=== PATIENT | male | born 1965 | race Caucasian/White ===

== ENCOUNTER 2017-03-11 19:50 | Emergency (ER) | payer OTHER ==
--- NOTE | 2017-03-11 21:17 | ED ORDER SUMMARY ---
..... Patient: NANDO PERAZA OrderSheet [facility] VisitID: [id number] [address] [place] [address] 51y, M Registration Date/Time: 03/11/2017 ORDER SHEET Weight: 96.1 kg (stated) Allergies: None GENERAL ORDERS: CBC w Diff Urgent (20:33 03/11/2017 HBivens A.R.N.P.) (Ack 20:34 PWeiler ER Tech1) (20:46 KPage-Kuchan R.N.) CMP Urgent (20:33 03/11/2017 HBivens A.R.N.P.) (Ack 20:34 PWeiler ER Tech1) (20:46 KPage-Kuchan R.N.) Vitals - Orthostatic (20:33 03/11/2017 HBivens A.R.N.P.) (21:00 KPage-Kuchan R.N.) MEDICATION ORDERS: Meclizine PO 50 mg (NOW) (20:33 03/11/2017 HBivens A.R.N.P.) (Ack 20:46 KPage-Kuchan R.N.) (20:58 KPage-Kuchan R.N.) IV FLUIDS: IV NS : initial bolus 1000 mL (1000 mL/hr), then none - (NOW) (20:32 03/11/2017 HBivens A.R.N.P.) (Ack 20:46 KPage-Kuchan R.N.) (20:59 KPage-Kuchan R.N.) Zofran IV 4 mg (NOW) (20:33 03/11/2017 HBivens A.R.N.P.) (Ack 20:46 KPage-Kuchan R.N.) (20:59 KPage-Kuchan R.N.) IV Saline Lock (20:33 03/11/2017 HBivens A.R.N.P.) (20:59 KPage-Kuchan R.N.) ORDER SHEET NOTES: [Electronically signed by Wen Birzuela R.N. (21:46 03/11/2017)] [Electronically signed by Susu Alonso (22:13 03/11/2017)] [Electronically locked/signed by Wen Brizuela R.N. (21:46 03/11/2017)]
--- NOTE | 2017-03-11 21:17 | ED CLINICAL REPORT ---
Clinical Report - Physicians/Mid Levels [facility] [address] [address] 03/11/2017 19:50 Patient: NANDO PERAZA Time Seen: 20:20; initial patient contact, initial documentation, patient care assumed. Arrived- By private vehicle. Historian- patient. HISTORY OF PRESENT ILLNESS Chief Complaint: DIZZINESS. Severity described as severe at its maximum. When seen in the E.D., severity described as severe. Modifying factors- worsened by turning head, standing up and changing position. Relieved by nothing. Described as a sense of rotation and movement. Not described as feeling weak all over. This started today and is still present. It was abrupt in onset and has been constant. The patient has had nausea and vomiting. No hearing loss, tinnitus or ear pain. Similar symptoms previously: None. Recent medical care: Not recently seen/assessed. REVIEW OF SYSTEMS No headache, double vision, weakness, head injury or chest pain. No numbness, fever or difficulty breathing. No difficulty walking. All systems otherwise negative, except as recorded above. PAST HISTORY See nurses notes. ( PROBLEMS: Elevated Cholesterol. --20:01 Wen Brizuela, R.N. ADDITIONAL SURGERIES: Inguinal Hernia Repair. --20:01 Wen Brizuela, R.N.). SOCIAL HISTORY Never smoker. Occasional alcohol use. No drug use. No recent travel. Is a local resident. FAMILY HISTORY Negative. ADDITIONAL NOTES The nursing notes have been reviewed with agreement regarding the chief complaint, HPI, ROS, PMH and patient medications and allergies. PHYSICAL EXAM Vital Signs: 03/11/2017 19:58 BP: 128/94. HR: 74. RR: 19. O2 saturation: 99%. Temp: 97.7 F. Pain level now: 4/10. Have been reviewed as normal and appear to be correct. Appearance: Alert. No acute distress. Eyes: Pupils equal, round and reactive to light. No nystagmus. Extraocular movements normal. ENT: Normal ENT inspection. TM's normal. Moist mucous membranes. Pharynx normal. Neck: Normal inspection. Neck supple. CVS: Normal heart rate and rhythm. Heart sounds normal. Pulses normal. Respiratory: No respiratory distress. Breath sounds normal. Back: Normal inspection. Skin: Skin warm and dry. Normal skin color. No rash. Normal skin turgor. Extremities: Extremities exhibit normal ROM. No lower extremity edema. Neuro: Alert. Oriented X 3. Mood/affect normal. Speech normal. Cranial nerves normal (as tested). No cerebellar findings. No motor deficit. No sensory deficit. LABS, X-RAYS, AND EKG Laboratory Tests: CBC w Diff: (PRAKASH: 03/11/2017 20:05) ( MsgRcvd 03/11/2017 20:43) Final results Test Result Flag Units (Reference) WHITE BLOOD COUNT 9.7 K/uL (4.5-11.5) RED BLOOD COUNT 5.43 M/uL (4.50-5.90) HEMOGLOBIN 15.7 gm/dL (13.5-17.5) HEMATOCRIT 47.8 % (41.0-53.0) MEAN CELL VOLUME 88 fL (80-100) MEAN CORPUSCULAR HGB 29 pg (26-34) MEAN CORPUSCULAR HGB CONC 33 g/dL (31-37) RED CELL DISTRIBUTION WIDTH 13.5 % (11.6-14.8) PLATELET COUNT 343 K/uL (150-400) NEUTROPHIL % 64.3 % (50-75) LYMPH % 26.2 % (25-40) MONO % 6.6 % (3-14) EOSINOPHIL % 2.5 % (0-4) BASOPHIL % 0.4 % (0-2) CMP: (PRAKASH: 03/11/2017 20:33) ( MsgRcvd 03/11/2017 21:07) Final results Test Result Flag Units (Reference) GLUCOSE 102 mg/dL (70-110) BUN 13 mg/dL (7-18) CREATININE 0.9 mg/dL (0.6-1.3) Estimated GFR >60 mL/min Estimated GFR- >60 mL/min Note: Persistent reduction over 3 months in eGFR<60 mL/min/1.73 m2 defines CKD. Patients with eGFR values>=60 mL/min/1.73 m2 may also have CKD if evidence ofpersistent proteinuria. Additional information may be foundat www.kidney.org. SODIUM 143 mmol/L (136-145) POTASSIUM 4.2 mmol/L (3.5-5.1) CHLORIDE 106 mmol/L (98-107) CARBON DIOXIDE 24 mmol/L (21-32) CALCIUM 8.6 mg/dL (8.5-10.1) TOTAL PROTEIN 7.4 g/dL (6.4-8.2) ALBUMIN 3.8 g/dL (3.3-5.0) BILIRUBIN, TOTAL 0.2 mg/dL (0.0-1.0) ALKALINE PHOSPHATASE 76 U/L (46-116) AST (SGOT) 17 U/L (15-37) ALT (SGPT) 42 U/L (12-78) . PROGRESS AND PROCEDURES Course of Care: orthos vs. Patient counseled in person regarding the patient's stable condition, test results and diagnosis. 21:11. Differential Diagnosis: I considered cochlear disease, labyrinthitis, vestibular neuronitis, Meniere's disease, benign positional vertigo, brainstem TIA, near-syncope, multiple sensory deficits, anxiety, psychosis and metaphorical dizziness such as depression, chronic fatigue, etc as a possible cause of dizziness in this patient. This is a partial list of diagnoses considered. Above considerations are based on history, physical exam, reassessment and laboratory data. Differential diagnosis was discussed with patient and patient's spouse. Disposition: Discharged home in good and improved condition (21:17). Condition: good and stable. CLINICAL IMPRESSION Acute dizziness INSTRUCTIONS Warnings: GENERAL WARNINGS: Return or contact your physician immediately if your condition worsens or changes unexpectedly, if not improving as expected, or if other problems arise. SPECIFICALLY, return if you develop chest pain, neck pain, jaw pain, shoulder pain, arm pain, back pain, fluttering sensation in your chest, lightheadedness, fainting, numbness, weakness or extreme fatigue. Prescription Medications: Meclizine 25 mg: Take 1 tablet orally every 8 hours as needed for dizziness. Dispense thirty (30). No refills. Follow-up: Follow up with your doctor in about three days even if well. Call for an appointment. Summary of care provided to patient and family. Understanding of the discharge instructions verbalized by patient. (Electronically signed by Susu Alonso A.R.N.P. 03/11/2017 22:13)
--- NOTE | 2017-03-11 21:17 | ED ORDER SUMMARY ---
..... Patient: NANDO PERAZA OrderSheet [facility] VisitID: [id number] [address] [place] [address] 51y, M Registration Date/Time: 03/11/2017 ORDER SHEET Weight: 96.1 kg (stated) Allergies: None GENERAL ORDERS: CBC w Diff Urgent (20:33 03/11/2017 HBivens A.R.N.P.) (Ack 20:34 PWeiler ER Tech1) (20:46 KPage-Kuchan R.N.) CMP Urgent (20:33 03/11/2017 HBivens A.R.N.P.) (Ack 20:34 PWeiler ER Tech1) (20:46 KPage-Kuchan R.N.) Vitals - Orthostatic (20:33 03/11/2017 HBivens A.R.N.P.) (21:00 KPage-Kuchan R.N.) MEDICATION ORDERS: Meclizine PO 50 mg (NOW) (20:33 03/11/2017 HBivens A.R.N.P.) (Ack 20:46 KPage-Kuchan R.N.) (20:58 KPage-Kuchan R.N.) IV FLUIDS: IV NS : initial bolus 1000 mL (1000 mL/hr), then none - (NOW) (20:32 03/11/2017 HBivens A.R.N.P.) (Ack 20:46 KPage-Kuchan R.N.) (20:59 KPage-Kuchan R.N.) Zofran IV 4 mg (NOW) (20:33 03/11/2017 HBivens A.R.N.P.) (Ack 20:46 KPage-Kuchan R.N.) (20:59 KPage-Kuchan R.N.) IV Saline Lock (20:33 03/11/2017 HBivens A.R.N.P.) (20:59 KPage-Kuchan R.N.) ORDER SHEET NOTES: [Electronically signed by Wen Brizuela R.N. (21:46 03/11/2017)] [Electronically signed by Susu Alonso (22:13 03/11/2017)] [Electronically locked/signed by Wen Brizuela R.N. (21:46 03/11/2017)]
--- NOTE | 2017-03-11 21:17 | ED NURSING NOTES ---
Clinical Report - Nurses [facility] [address] [place] [address] 03/11/2017 19:50 Patient: NANDO PERAZA TRIAGE Triage time 19:58 Mar 11 2017. Chief Complaint: (pt reports waking today feeling "dizzy and couldn't focus on anything" t/o the day symptoms increased to vomiting on the way here.). Alert. No acute distress. SEPSIS SCREEN: Sepsis Screen. Negative (no infection suspected/documented). --20:04 Wen Brizuela R.N. 19:58 03/11/17. BP: 128/94. HR: 74. RR: 19. O2 saturation: 99%. Temp: 97.7 F. Pain level now: 02/23. --20:04 Wen Brizuela R.N. Weight: 96.1 kg stated. Height/Length: 73 inches Per Patient. BMI: 28. --20:03 Wen Brizuela R.N. Medications Simvastatin Oral. --20:00 Wen Brizuela R.N. Wellbutrin Oral. --20:00 Wen Brizuela R.N. Allergies None. --20:00 Wen Brizuela R.N. History Arrived by private vehicle. Historian: patient. Accompanied by family. Onset. (pt woke this morning feeling "sick"). He has had nausea and vomiting. Last oral intake by patient was today (7 hours ago). 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 SOCIAL HX: Smoker- current status unknown. Occasional alcohol use; consumes beer weekly and liquor. No drug use. No infectious disease exposure. No known contact with a sick individual. ABUSE ASSESSMENT: No report of abuse. SELF HARM ASSESSMENT: A self harm assessment was performed. The patient answered "no" to the question "Have you recently felt down, depressed, or hopeless?", "Have you noticed less interest or pleasure in doing things?", "Do you have thoughts of harming or killing yourself?", "Are you here because you tried to hurt yourself?", "Have you ever tried to hurt yourself before today?", "Have you recently had thoughts about harming or killing others?" and "Do you have any dangerous items in your possession?". FALL RISK ASSESSMENT: Fall risk assessment completed. No fall risk identified. NUTRITIONAL RISK ASSESSMENT: The nutritional risk assessment revealed no deficiencies. FUNCTIONAL ASSESSMENT: Functional assessment: no impairments noted. LEARNING NEEDS ASSESSMENT: The learning needs assessment revealed no barriers. SKIN INTEGRITY ASSESSMENT: Skin integrity risk assessment completed. No skin integrity risk identified. --20:04 Wen Brizuela R.N. PROBLEMS: Elevated Cholesterol. --20:01 Wen Brizuela R.N. ADDITIONAL SURGERIES: Inguinal Hernia Repair. --20:01 Wen Brizuela R.N. Interventions ID band on patient. To treatment room. --20:04 Wen Brizuela R.N. PHYSICAL ASSESSMENT Ambulatory to room. Patient gowned. GENERAL / NEURO / PSYCH: Alert. Oriented X 4. Appears anxious. He appears ill and uncomfortable and appears restless. HEENT: Mucous membranes are pink. RESPIRATORY: Respirations not labored. Breath sounds within normal limits. CVS: Capillary refill less than 2 seconds. GI / : Abdomen soft and nontender. Bowel sounds within normal limits. SKIN: Skin is warm and dry. --20:05 Wen Brizuela R.N. NURSING PROGRESS NOTES Patient gowned. Reassurance given. Two patient identifiers checked. Call light placed in reach. Side rails up x 1. Bed placed in lowest position. Brakes of bed on. Patient ready for evaluation- chart flagged. Patient waiting for evaluation. --20:05 Wen Brizuela R.N. 20:01 03/11/2017 Site #1 started via IV in the left hand with an 20g angiocath; one attempt. Blood drawn: rainbow set. Labeled in the presence of the patient and sent to the lab. Saline lock flushed with 10 mL saline. --20:06 Wen Brizuela R.N. ( pt had emesis on the way to the ED, describes as "it was my lunch, 3 times in a row" pt reports spinning with each position change). --20:07 Wen Brizuela R.N. 20:53 03/11/2017 Meclizine PO 50 mg given. Allergies verified, confirmed 5 rights and sedative warning given. --20:58 Wen Brizuela R.N. 20:54 03/11/2017 Zofran (Ondansetron HCl) IVP 4 mg given. via site #1. Allergies verified and confirmed 5 rights. IV patency established. IV site checked: no pain, redness, or swelling. IV flushed thoroughly pre- and post-medication administration. IVP given by RN. --20:59 Wen Brizuela R.N. 20:59 03/11/2017 Started bag #1 1000 mL IV Fluids IV NS (Saline); at 1000 mL/hr via site #1 via IV pump. Allergies verified and confirmed 5 rights. IV patency established. IV site checked: no pain, redness, or swelling. IV flushed thoroughly pre- and post-medication administration. --20:59 Wen Brizuela R.N. 21:01 03/11/17. BP: 134/101 taken while standing. HR: 82. 21:01 03/11/17. BP: 131/93 taken while sitting. HR: 75. 21:00 03/11/17. BP: 124/84 taken on the left arm, while lying. HR: 78. 19:58 03/11/17. BP: 128/94. HR: 74. RR: 19. O2 saturation: 99%. Temp: 97.7 F. Pain level now: 02/23. --21:02 Wen Brizuela R.N. ( orthostatic v/s completed, pt reported "dizzy" with position changes, nausea increased from laying to sitting position. s/o at bedside, call light in hand.). --21:06 Wen Brizuela R.N. ( pt reports dec in nausea after zofran, ivf infusing as ordered, will dispo upon completion of ivf). --21:17 Wen Brizuela R.N. 21:25 03/11/2017 Zofran IVP Response: no adverse reaction symptoms have improved the patient feels better. --21:40 Wen Brizuela R.N. 21:29 03/11/2017 IV Saline Lock Drip IV Discontinued: STOPPED upon discharge. Total amount infused: 1000 mL. IV patency established. IV site checked: no pain, redness, or swelling. IV flushed thoroughly. --21:39 Wen Brizuela R.N. 21:31 03/11/2017 IV Fluids IV NS Discontinued: infused upon discharge. Total amount infused: 1000 mL. IV patency established. IV site checked: no pain, redness, or swelling. IV flushed thoroughly. --21:41 Wen Brizuela R.N. 21:36 03/11/2017 Meclizine PO Response: no adverse reaction symptoms have improved. --21:41 Wen Brizuela R.N. 21:38 03/11/2017 Site #1 removed upon discharge. Bandaid applied. --21:42 Wen Brizuela R.N. DISPOSITION / DISCHARGE Departure time: 2136. Condition at departure: improved. No learning barriers present. Discharge instructions provided and reviewed with the patient and spouse. Reviewed medication(s) side effects and course information. Prescription(s) given to the patient. Patient verbalized understanding. Written instructions provided in [place]. The patient was discharged by the nurse practitioner. He was discharged home and accompanied by spouse. He left the Emergency Department ambulatory and via private vehicle. Spouse driving. --21:39 Wen Brizuela R.N. 21:36 03/11/17. BP: 136/88. HR: 76. RR: 17. O2 saturation: 99%. Temp: 98.3 F. Pain level now: 01/23. --21:39 Wen Brizuela R.N. Locked/Released at 03/11/2017 21:46 by Wen Brizuela R.N.
--- NOTE | 2017-03-11 22:13 | ED MED RECONCILIATION SUMMARY ---
Patient: NANDO PERAZA Medication Reconciliation Report VisitID: [id number] [address] [place] [address] 51y, M Registration Date/Time: 03/11/2017 Weight: 96.1 kg Height/Length: 73 in. BMI: 28.0 ALLERGIES: None The patient's Home Medications are listed below: THE FOLLOWING MEDICATIONS NEED TO BE RECONCILED: Simvastatin Oral Wellbutrin Oral The source(s) of the original Home Medication information: Not obtained. The following Medications were given to the patient in the Emergency Department: Meclizine [PO] PO 50 mg, administered: 03/11/2017 8:53:00 PM Zofran [IVP] IVP 4 mg, administered: 03/11/2017 8:54:00 PM IV NS IV Fluids bolus 0, then 1000 mL/hr, administered: 03/11/2017 8:59:00 PM The following Medications were prescribed to the patient: Meclizine 25 mg: Take 1 tablet orally every 8 hours as needed for dizziness. Dispense thirty (30). No refills. -- Susu Alonso A.R.N.P.
--- NOTE | 2017-03-11 22:13 | ED MED RECONCILIATION SUMMARY ---
Patient: NANDO PERAZA Medication Reconciliation Report [facility] VisitID: [id number] [address] [place] [address] 51y, M Registration Date/Time: 03/11/2017 Weight: 96.1 kg Height/Length: 73 in. BMI: 28.0 ALLERGIES: None The patient's Home Medications are listed below: THE FOLLOWING MEDICATIONS NEED TO BE RECONCILED: Simvastatin Oral Wellbutrin Oral The source(s) of the original Home Medication information: Not obtained. The following Medications were given to the patient in the Emergency Department: Meclizine [PO] PO 50 mg, administered: 03/11/2017 8:53:00 PM Zofran [IVP] IVP 4 mg, administered: 03/11/2017 8:54:00 PM IV NS IV Fluids bolus 0, then 1000 mL/hr, administered: 03/11/2017 8:59:00 PM The following Medications were prescribed to the patient: Meclizine 25 mg: Take 1 tablet orally every 8 hours as needed for dizziness. Dispense thirty (30). No refills. -- Susu Alonso A.R.N.P.
--- NOTE | 2017-03-11 22:13 | ED DISCHARGE INSTRUCTIONS ---
Patient: NANDO PERAZA General Instructions [facility] VisitID: [id number] [address] [place] [address] 51y, M Registration Date/Time: 03/11/2017 Acute dizziness INSTRUCTIONS Warnings: GENERAL WARNINGS: Return or contact your physician immediately if your condition worsens or changes unexpectedly, if not improving as expected, or if other problems arise. SPECIFICALLY, return if you develop chest pain, neck pain, jaw pain, shoulder pain, arm pain, back pain, fluttering sensation in your chest, lightheadedness, fainting, numbness, weakness or extreme fatigue. Prescription Medications: Meclizine 25 mg: Take 1 tablet orally every 8 hours as needed for dizziness. Dispense thirty (30). No refills. Follow-up: Follow up with your doctor in about three days even if well. Call for an appointment. Summary of care provided to patient and family. Understanding of the discharge instructions verbalized by patient. ADDITIONAL INFORMATION Dizziness [Uncertain Cause] Dizziness is a common symptom sometimes described as "lightheadedness" or feeling like you are going to faint. If it lasts for only a few seconds and is related to changes in position (such as getting up after lying or sitting for a long time), it is usually not a sign of anything serious. Dizziness that lasts for minutes to hours, or comes on for no apparent reason, may be a sign of a more serious problem (such as dehydration, a medicine reaction, disease of the heart or brain). Today's exam did not show an exact cause for your dizzy spell . Sometimes additional tests are required before a cause can be found. Therefore, it is important to follow up with your doctor if your symptoms continue. Home Care: 1) If a dizzy spell occurs and lasts more than a few seconds, lie down until it passes. If you are lying down, then you cannot hurt yourself by falling if you do faint. 2) Do not drive or operate dangerous equipment until the dizzy spells have stopped for at least 48 hours. 3) If dizzy spells occur with sudden standing, this may be a sign of mild dehydration. Drink extra fluids over the next few days. 4) If you recently started a new medicine or if you had the dose of a current medicine increased (especially blood pressure medicine), talk with the prescribing doctor about your symptoms. Dose adjustments may be needed. Follow Up with your doctor for further evaluation within the next seven days, if your symptoms continue. Get Prompt Medical Attention if any of the following occur: -- Worsening of your symptoms -- Fainting, headache or seizure -- Repeated vomiting -- Feeling like you or the room is spinning -- Chest, arm, neck, back or jaw pain -- Palpitations (the sense that your heart is fluttering or beating fast or hard) -- Shortness of breath -- Blood in vomit or stool (black or red color) -- Weakness of an arm or leg or one side of the face -- Difficulty with speech or vision Benign Positional Vertigo The inner ear is located behind the middle ear. It is a part of the balance center of the body. It contains small calcium particles within fluid filled canals (semi-circular canals). These particles can move out of position as a result of aging, head trauma or disease of the inner ear. Once that happens, movement of the head into certain positions may cause the particles to stimulate the inner ear and create the feeling of vertigo. Vertigo is a false feeling of motion (as if you or the room is spinning). A vertigo attack may cause sudden nausea, vomiting and heavy sweating. Severe vertigo causes a loss of balance and may result in falling. During an attack of vertigo, head movement and body position changes will worsen symptoms. An episode of vertigo may last seconds, minutes or hours. Once you are over the first episode of vertigo, it may never return. Sometimes symptoms recur off and on over several weeks or longer. Home Care: If symptoms are severe, rest quietly in bed. Change positions slowly. There is usually one position that will feel best, such as lying on one side or lying on your back with your head slightly raised on pillows. Do not drive or work with dangerous machinery for one week after symptoms disappear, in case of a sudden return of symptoms. Take medicine as prescribed to relieve your symptoms. Unless another medicine was prescribed for nausea, vomiting and vertigo, you may use [id number] motion sickness pills, such as meclizine (Bonine, Bonamine, Antivert) or dimenhydrinate (Dramamine). Follow Up with your doctor or as directed by our staff. Report any persistent ringing in the ear or hearing loss to your doctor. [NOTE: If you had a CT or MRI scan, it will be reviewed by a specialist. You will be notified of any new findings that may affect your care.] Get Prompt Medical Attention if any of the following occur: Worsening of vertigo not controlled by the medicine prescribed Repeated vomiting not controlled by the medicine prescribed Increased weakness or fainting Severe headache or unusual drowsiness or confusion Weakness of an arm or leg or one side of the face Difficulty with speech or vision Seizure Meclizine Hydrochloride Oral tablet What is this medicine? MECLIZINE (MEK irma gamble) is an antihistamine. It is used to prevent nausea, vomiting, or dizziness caused by motion sickness. It is also used to prevent and treat vertigo (extreme dizziness or a feeling that you or your surroundings are tilting or spinning around). How should I use this medicine? Take this medicine by mouth with a glass of water. Follow the directions on the prescription label. If you are using this medicine to prevent motion sickness, take the dose at least 1 hour before travel. If it upsets your stomach, take it with food or milk. Take your doses at regular intervals. Do not take your medicine more often than directed. Talk to your game designer/creative director regarding the use of this medicine in children. Special care may be needed. What side effects may I notice from receiving this medicine? Side effects that you should report to your doctor or health geriatric personal care aide as soon as possible: fainting spells fast or irregular heartbeat Side effects that usually do not require medical attention (report to your doctor or health geriatric personal care aide if they continue or are bothersome): constipation difficulty passing urine difficulty sleeping headache stomach upset What may interact with this medicine? barbiturate medicines for inducing sleep or treating seizures digoxin medicines for anxiety or sleeping problems, like alprazolam, diazepam or temazepam medicines for hay fever and other allergies medicines for mental depression medicines for movement abnormalities as in Parkinson's disease, or for stomach problems medicines for pain medicines that relax muscles What if I miss a dose? If you miss a dose, take it as soon as you can. If it is almost time for your next dose, take only that dose. Do not take double or extra doses. Where should I keep my medicine? Keep out of the reach of children. Store at room temperature between 15 and 30 degrees C (59 and 86 degrees F). Keep container tightly closed. Throw away any unused medicine after the expiration date. What should I tell my health care provider before I take this medicine? They need to know if you have any of these conditions: asthma glaucoma prostate trouble stomach problems urinary problems an unusual or allergic reaction to meclizine, other medicines, foods, dyes, or preservatives or trying to get breast-feeding What should I watch for while using this medicine? If you are taking this medicine on a regular schedule, visit your doctor or health geriatric personal care aide for regular checks on your progress. You may get dizzy, drowsy or have blurred vision. Do not drive, use machinery, or do anything that needs mental alertness until you know how this medicine affects you. Do not stand or sit up quickly, especially if you are an older patient. This reduces the risk of dizzy or fainting spells. Alcohol can increase possible dizziness. Avoid alcoholic drinks. Your mouth may get dry. Chewing sugarless gum or sucking hard candy, and drinking plenty of water may help. Contact your doctor if the problem does not go away or is severe. This medicine may cause dry eyes and blurred vision. If you wear contact lenses you may feel some discomfort. Lubricating drops may help. See your eye doctor if the problem does not go away or is severe. You have been given the following additional information: Dizziness, Unk Cause Benign Positional Vertigo Meclizine Hydrochloride Oral tablet (Electronically signed by Susu Alonso A.R.N.P. 03/11/2017 22:13)
--- NOTE | 2017-03-11 22:13 | ED MAR SUMMARY ---
..... Medication Administration Record [facility] [address] [place] [address] Patient: NANDO PERAZA Visit ID: [id number] 51y, M Weight: 96.1 kg Height/Length: 73 in BMI: 28 ALLERGIES: None Given 20:53 03/11/2017 Wen Brizuela R.N. Medication Administered: MECLIZINE [PO], Dose: 50 mg PO. Medication Ordered: Meclizine PO 50 mg (NOW). Given 20:54 03/11/2017 Wen Brizuela R.N. Medication Administered: ZOFRAN [IVP] (ONDANSETRON HCL), Dose: 4 mg IVP, Site: #1 left hand. Medication Ordered: Zofran IV 4 mg (NOW). Start 20:59 03/11/2017 Wen Brizuela R.N., Stop 21:31 03/11/2017 Wen Brizuela R.N. Medication Administered: IV NS (SALINE), Dose: IV Fluids, Rate: 1000 mL/hr, Dispensed: 1000 mL bag, Site: #1 left hand. Medication Ordered: IV NS : initial bolus 1000 mL (1000 mL/hr), then none - (NOW).
--- NOTE | 2017-03-11 22:13 | ED MAR SUMMARY ---
..... Medication Administration Record [facility] [address] [place] [address] Patient: NANDO PERAZA Visit ID: [id number] 51y, M Weight: 96.1 kg Height/Length: 73 in BMI: 28 ALLERGIES: None Given 20:53 03/11/2017 Wen Brizuela R.N. Medication Administered: MECLIZINE [PO], Dose: 50 mg PO. Medication Ordered: Meclizine PO 50 mg (NOW). Given 20:54 03/11/2017 Wen Brizuela R.N. Medication Administered: ZOFRAN [IVP] (ONDANSETRON HCL), Dose: 4 mg IVP, Site: #1 left hand. Medication Ordered: Zofran IV 4 mg (NOW). Start 20:59 03/11/2017 Wen Brizuela R.N., Stop 21:31 03/11/2017 Wen Brizuela R.N. Medication Administered: IV NS (SALINE), Dose: IV Fluids, Rate: 1000 mL/hr, Dispensed: 1000 mL bag, Site: #1 left hand. Medication Ordered: IV NS : initial bolus 1000 mL (1000 mL/hr), then none - (NOW).
== END 2017-03-11 21:39 | disposition home or self-care (01) ==
LOC: ED SRH 19:50
DX: R42 Dizziness and giddiness (principal); R11.10 Vomiting, unspecified; Z79.899 Other long term (current) drug therapy
CPT/HCPCS: 90100; 95059